=== PATIENT | male | born 2005 | race Caucasian/White ===

== ENCOUNTER 2024-02-28 01:40 | Emergency (ER) | payer OTHER ==
[2024-02-28] MEDS ORDERED: KETOROLAC 30 MG/ML INJ ONE (02:00)
[2024-02-28] MEDS ORDERED: NA CHLORIDE 0.9% 1,000 ML ONE (02:01)
[2024-02-28 02:24] LABS: Absolute Eosinophils 0.2 K/uL (0-0.5); Absolute Lymphocytes (CBC) 3.4 K/uL (0.7-4.9); Absolute Monocytes 0.6 K/uL (0.1-1.3); Absolute Neutrophil 4.5 K/uL (1.8-8.0); Basophils % 0.4 % (0-1.3); Eosinophils % 1.8 % (0-4.4); Hematocrit 44.4 % (39.6-49.0); Hemoglobin 15.6 g/dL (13.6-17.9); Lymphocytes % 38.5 % (15.3-44.8); MCH 32.2 pg (27.0-35.0); MCHC 35.1 g/dL (32.0-36.0); MCV 91.8 fL (80-100); MPV 9.1 fL (7.6-11.3); Monocytes % 7.4 % (3.3-12.3); Neutrophils % 51.9 % (41.7-73.7); Nucleated Red Blood Cells % 0.3 % (0-0); Platelets 212 thou/uL (152-406); RBC Red Blood Cell Count 4.84 M/uL (4.33-5.43); Red Cell Distribution Width 12.5 % (12.1-15.2)
[2024-02-28 02:36] LABS: Albumin 3.8 g/dL (3.4-5.0); Albumin/Globulin Ratio 1.1 (1.1-1.8); Anion Gap 8.7 mEq/L (5.0-15.0); Bilirubin Direct 0.1 mg/dL (0-0.2); Bilirubin Indirect, Calculated 0.6 mg/dL (0.2-0.8); Bilirubin Total 0.7 mg/dL (0.2-1.0); Globulin 3.4 g/dL (2.3-3.5); Magnesium 2.1 mg/dL (1.6-2.4); Potassium 3.7 mEq/L (3.5-5.1); Protein, Total 7.2 g/dL (6.4-8.2); Troponin High Sensitivity 4.8 pg/mL (<58.9)
--- NOTE | 2024-02-28 03:53 | EDPHYS ---
Physician Documentation [facility] Name: Antoni Bach Age: 19 yrs Sex: Male : 2005 Arrival Date: 02/28/2024 Time: 01:40 Bed 14 Private MD: ED Physician Brian Galeana HPI: 02/27 01:54 This 19 yrs old Male presents to ER via Ambulatory with complaints of Chest Pain. cp 01:55 The patient or guardian reports chest pain that is located primarily in the anterior cp chest wall, left. The pain radiates to back. Associated signs and symptoms: Pertinent positives: cough, Pertinent negatives: abdominal pain, diaphoresis, lower extremity pain, lower extremity swelling, palpitations, shortness of breath, syncope, vomiting. The chest pain is described as sharp. Duration: The patient or guardian reports a single episode, that is still ongoing, but improving. Severity of pain: in the emergency department the pain has improved moderately. Historical: - Allergies: 01:51 No Known Allergies; jw7 - Home Meds: 01:51 None [Active]; jw7 - PMHx: 01:51 Heart murmur; Anxiety; jw7 - PSHx: 01:51 None; jw7 - Immunization history:: Adult Immunizations up to date, Client reports having NOT received the Covid vaccine. Flu vaccine is not up to date. - Infectious Disease History:: Denies. - Social history:: Smoking status: Reported history of juuling and/or vaping. Patient uses alcohol, occasionally. Patient/guardian denies using street drugs, IV drugs. ROS: 01:56 Cardiovascular: Positive for chest pain, Negative for edema, palpitations, cp Exam: 01:58 ECG was reviewed by the Attending Physician. cp 02:00 Constitutional: The patient appears in no acute distress, alert, awake, cp non-diaphoretic, non-toxic, well developed, well nourished, anxious, uncomfortable, 02:00 Head/Face: Normocephalic, atraumatic. cp 02:00 Eyes: Periorbital structures: appear normal, Conjunctiva: normal, no exudate, no injection, Sclera: no appreciated abnormality, Lids and lashes: appear normal, bilaterally, 02:00 ENT: External ear(s): are unremarkable, Nose: is normal, Mouth: Lips: moist, Oral mucosa: pink and intact, moist, Posterior pharynx: Airway: no evidence of obstruction, patent, 02:00 Neck: ROM/movement: is normal, is supple, without pain, no range of motions limitations, 02:00 Chest/axilla: Inspection: normal, Palpation: is normal, no crepitus, no tenderness, 02:00 Cardiovascular: Rate: normal, Rhythm: regular, Edema: is not appreciated, JVD: is not appreciated, 02:00 Respiratory: the patient does not display signs of respiratory distress, Respirations: normal, no use of accessory muscles, no retractions, labored breathing, is not present, Breath sounds: are clear throughout, no decreased breath sounds, no stridor, no wheezing, 02:00 Abdomen/GI: Inspection: abdomen appears normal, Palpation: abdomen is soft and non-tender, in all quadrants, 02:00 Back: pain, is absent, ROM is normal, 02:00 Neuro: Orientation: to person, place \T\ time. Mentation: is normal, Motor: moves all fours, strength is normal, Sensation: is normal, Vital Signs: 01:50 BP 155 / 97; Pulse 81; Resp 20; Temp 98.2; Pulse Ox 100% ; Weight 88.45 kg; Height 5 jw7 ft. 7 in. ; Pain 2/10; 03:00 BP 145 / 88; Pulse 79; Resp 19 S; Pulse Ox 99% on R/A; [facility] 04:00 BP 140 / 84; Pulse 71; Resp 18 S; Pulse Ox 100% on R/A; [facility] 01:50 Body Mass Index 30.54 (88.45 kg, 170.18 cm) [facility] 01:50 Pain Scale: Adult 7 MDM: 01:47 Patient medically screened. 02:00 Differential diagnosis: abnormal EKG, acute myocardial infarction, anxiety, chest wall cp pain, costochondritis, gastritis, peptic ulcer disease, pericarditis, pleurisy, pneumonia, pneumothorax, thoracic aortic disection. 03:51 Data reviewed: vital signs, nurses notes, lab test result(s), EKG, radiologic studies, cp plain films. 03:51 I considered the following discharge prescriptions or medication management in the emergency department Medications were administered in the Emergency Department. See MAR. Independent interpretation of the following test(s) in the Emergency Department EKG: See my EKG interpretation above X-Ray: My interpretation is image of chest negative for infiltrates. Counseling: I had a detailed discussion with the patient and/or guardian regarding the historical points, exam findings, and any diagnostic results supporting the discharge/admit diagnosis, lab results, radiology results, to return to the emergency department if symptoms worsen or persist or if there are any questions or concerns that arise at home. Special discussion: Based on the patient's history, exam, and Dx evaluation, there is no indication for emergent intervention or inpatient Tx. It is understood by the patient/guardian that if the Sx's persist or worsen they need to return immediately for re-evaluation. 02/27 01:54 Order name: Basic Metabolic Panel; Complete Time: 02:41 cp 02/27 02:41 Interpretation: Normal except: GLUC 123. cp 02/27 01:54 Order name: CBC with Diff; Complete Time: 02:41 cp 02/27 02:43 Interpretation: Reviewed. cp 02/27 01:54 Order name: D-Dimer; Complete Time: 02:41 cp 02/27 02:43 Interpretation: Reviewed. cp 02/27 01:54 Order name: LFT's; Complete Time: 02:41 cp 02/27 01:54 Order name: Magnesium; Complete Time: 02:41 cp 02/27 01:54 Order name: Troponin HS; Complete Time: 02:41 cp 02/27 02:42 Interpretation: Reviewed. cp 02/27 01:54 Order name: XRAY Chest (1 view) cp 02/27 01:54 Order name: EKG; Complete Time: 01:54 cp 02/27 01:54 Order name: Cardiac monitoring; Complete Time: 01:55 cp 02/27 01:54 Order name: EKG - Nurse/Tech; Complete Time: 01:55 cp 02/27 01:54 Order name: IV Saline Lock; Complete Time: 02:15 cp 02/27 01:54 Order name: Labs collected and sent; Complete Time: 02:14 cp 02/27 01:54 Order name: O2 Per Protocol; Complete Time: 01:55 cp 02/27 01:54 Order name: O2 Sat Monitoring; Complete Time: 01:55 cp EC:58 Rate is 89 beats/min. Rhythm is regular. OK interval is normal. QRS interval is normal. cp QT interval is normal. T waves are Inverted in lead aVR. Interpreted by me. Reviewed by me. Administered Medications: 02:15 Drug: NS 0.9% IV 1000 ml IV at 999 bolus Per protocol; 1000 mL bolus Route: IV; Rate: jw7 999 bolus; Site: right antecubital; 04:00 Follow up: Response: No adverse reaction; IV Status: Completed infusion; IV Intake: jw7 1000ml 02:15 Drug: Ketorolac IVP 15 mg IVP once Route: IVP; Site: right antecubital; jw7 04:00 Follow up: Response: No adverse reaction; Marked relief of symptoms; Pain is decreased jw7 Disposition Summary: 02/28/24 03:52 Discharge Ordered Notes: Location: Home cp Problem: new cp Symptoms: have improved cp Condition: Stable cp Diagnosis - Chest pain, unspecified cp - Anxiety disorder, unspecified cp Followup: cp - With: Private Physician - When: 1 - 2 days - Reason: Recheck today's complaints Discharge Instructions: - Discharge Summary Sheet cp - Nonspecific Chest Pain, Adult cp - Generalized Anxiety Disorder, Adult cp Forms: - Medication Reconciliation Form cp - Antibiotic Education cp - Prescription Opioid Use cp - Patient Portal Instructions cp - Leadership Thank You Letter cp Prescriptions: - Vistaril 25 mg Oral capsule - take 1 capsule ORAL route 2-3 times daily as needed for anxiety; 30 capsule; cp Refills: 0, Product Selection Permitted Signatures: Dispatcher [employer] EDMS Brian Calvillo PA PA cp Natalie Victor RN RN jw7 Corrections: (The following items were deleted from the chart) 01:53 01:51 Home Meds: None; jw7 01:53 01:51 PMHx: None; jw7 jw7 01:55 01:54 BASIC METABOLIC PANEL+C.LAB.BRZ ordered. EDMS EDMS 01:55 01:54 CBC+H.LAB.BRZ ordered. EDMS EDMS :55 01:54 D-DIMER+COAG.LAB.BRZ ordered. EDMS EDMS 01:55 01:54 HEPATIC FUNCTION+C.LAB.BRZ ordered. EDMS EDMS 01:55 01:54 MAGNESIUM+C.LAB.BRZ ordered. EDMS EDMS 01:55 01:54 Troponin High Sensitivity+C.LAB.BRZ ordered. EDMS EDMS
--- NOTE | 2024-02-28 03:53 | ER ---
Nurse's Notes [facility] Name: Antoni Bach Age: 19 yrs Sex: Male : 2005 Arrival Date: 02/28/2024 Time: 01:40 Bed 14 Private MD: Diagnosis: Chest pain, unspecified;Anxiety disorder, unspecified Presentation: 02/27 01:50 Chief complaint: Patient states: Woke up with sever pain in the center of my chest jw7 around 0100 this morning and my back started tingling too. Coronavirus screen: At this time, the client does not indicate any symptoms associated with coronavirus-19. Ebola Screen: No symptoms or risks identified at this time. Initial Sepsis Screen: Does the patient meet any 2 criteria? No. Patient's initial sepsis screen is negative. Does the patient have a suspected source of infection? No. Patient's initial sepsis screen is negative. Risk Assessment: Do you want to hurt yourself or someone else? Patient reports no desire to harm self or others. Onset of symptoms. Onset of symptoms was February 28, 2024 at 01:00. 01:50 Method Of Arrival: Ambulatory jw7 01:50 Acuity: NARINDER 3 jw7 Triage Assessment: 01:51 General: Appears in no apparent distress. uncomfortable, Behavior is calm, cooperative. jw7 Pain: Complains of pain in chest Pain does not radiate. Pain currently is 2 out of 10 on a pain scale. at worst was 8 out of 10 on a pain scale. Quality of pain is described as aching, dull, Pain began suddenly, Is continuous. EENT: No deficits noted. No signs and/or symptoms were reported regarding the EENT system. Neuro: Level of Consciousness is awake, alert, obeys commands, Oriented to person, place, time, situation. Cardiovascular: Heart tones S1 S2 present Capillary refill < 3 seconds Clubbing of nail beds is absent JVD is absent Patient's skin is warm and dry. Respiratory: Airway is patent Trachea midline Respiratory effort is even, unlabored, Respiratory pattern is regular, symmetrical, Breath sounds are clear bilaterally. GI: Abdomen is flat, non-distended, Bowel sounds present X 4 quads. Abd is soft and non tender X 4 quads. : No deficits noted. No signs and/or symptoms were reported regarding the genitourinary system. Derm: Skin is intact, is healthy with good turgor, Skin is dry, Skin is normal, Skin temperature is warm. Musculoskeletal: Circulation, motion, and sensation intact. Range of motion: intact in all extremities. Historical: - Allergies: 01:51 No Known Allergies; jw7 - Home Meds: 01:51 None [Active]; jw7 - PMHx: :51 Heart murmur; Anxiety; jw7 - PSHx: :51 None; jw7 - Immunization history:: Adult Immunizations up to date, Client reports having NOT received the Covid vaccine. Flu vaccine is not up to date. - Infectious Disease History:: Denies. - Social history:: Smoking status: Reported history of juuling and/or vaping. Patient uses alcohol, occasionally. Patient/guardian denies using street drugs, IV drugs. Screenin:00 [facility] ED Fall Risk Assessment (Adult) History of falling in the last 3 months, jw7 including since admission No falls in past 3 months (0 pts) Confusion or Disorientation No (0 pts) Intoxicated or Sedated No (0 pts) Impaired Gait No (0 pts) Mobility Assist Device Used No (0 pt) Altered Elimination No (0 pt) Score/Fall Risk Level 0 - 2 = Low Risk Oriented to surroundings, Maintained a safe environment, Educated pt \T\ family on fall prevention, incl call for assistance when getting out of bed. Abuse screen: Denies threats or abuse. Denies injuries from another. Nutritional screening: No deficits noted. Tuberculosis screening: No symptoms or risk factors identified. Assessment: 01:55 General: See Triage Assessment. jw7 03:00 Reassessment: Patient appears in no apparent distress at this time. No changes from jw7 previously documented assessment. Patient and/or family updated on plan of care and expected duration. Pain level reassessed. Patient is alert, oriented x 3, equal unlabored respirations, skin warm/dry/pink. 04:20 Reassessment: Patient appears in no apparent distress at this time. No changes from jw7 previously documented assessment. Patient and/or family updated on plan of care and expected duration. Pain level reassessed. Patient is alert, oriented x 3, equal unlabored respirations, skin warm/dry/pink. Pain: Denies pain. Vital Signs: 01:50 BP 155 / 97; Pulse 81; Resp 20; Temp 98.2; Pulse Ox 100% ; Weight 88.45 kg; Height 5 jw7 ft. 7 in. ; Pain 2/10; 03:00 BP 145 / 88; Pulse 79; Resp 19 S; Pulse Ox 99% on R/A; jw7 04:00 BP 140 / 84; Pulse 71; Resp 18 S; Pulse Ox 100% on R/A; jw7 01:50 Body Mass Index 30.54 (88.45 kg, 170.18 cm) jw7 01:50 Pain Scale: Adult jw7 ED Course: 01:43 Patient arrived in ED. ra3 01:43 Brian Calvillo PA is PHCP. cp 01:44 Brian Galeana MD is Attending Physician. cp 01:50 Natalie Victor RN is Primary Nurse. jw7 01:51 Triage completed. jw7 01:51 Arm band placed on. jw7 01:58 EKG done, by machine packaging technician. reviewed by Brian MORRISSEY. oe 02:00 Patient has correct armband on for positive identification. Bed in low position. Call jw7 light in reach. Side rails up X 1. Provided Education on: Use of Call Light. Client placed on continuous cardiac and pulse oximetry monitoring. NIBP monitoring applied. cafeteria monitor on. 02:00 O2 via RA. jw7 02:06 Inserted saline lock: 20 gauge in right antecubital area, using aseptic technique. oe Blood collected. 02:14 Troponin HS Sent. oe 02:14 Magnesium Sent. oe 02:14 LFT's Sent. oe 02:14 D-Dimer Sent. oe 02:14 CBC with Diff Sent. oe 02:14 Basic Metabolic Panel Sent. oe 03:53 XRAY Chest (1 view) In Process Unspecified. EDMS 04:20 No provider procedures requiring assistance completed. IV discontinued, intact, jw7 bleeding controlled, No redness/swelling at site. Pressure dressing applied. Administered Medications: 02:15 Drug: NS 0.9% IV 1000 ml IV at 999 bolus Per protocol; 1000 mL bolus Route: IV; Rate: jw7 999 bolus; Site: right antecubital; 04:00 Follow up: Response: No adverse reaction; IV Status: Completed infusion; IV Intake: jw7 1000ml 02:15 Drug: Ketorolac IVP 15 mg IVP once Route: IVP; Site: right antecubital; jw7 04:00 Follow up: Response: No adverse reaction; Marked relief of symptoms; Pain is decreased jw7 Medication: 04:20 VIS not applicable for this client. jw7 Intake: 04:00 IV: 1000ml; Total: 1000ml. jw7 Outcome: 03:52 Discharge ordered by . cp 04:20 Discharged to home ambulatory, jw7 04:20 Condition: stable 04:20 Discharge instructions given to patient, Instructed on discharge instructions, follow up and referral plans. medication usage, Demonstrated understanding of instructions, follow-up care, medications, Prescriptions given X 1, 04:20 Patient left the ED. jw7 Signatures: Dispatcher [employer] EDMS Brian Calvillo PA PA cp Espinosa, Orlando oe Waits, Jodi, RN RN jwLian Calhoun ra3 Corrections: (The following items were deleted from the chart) 01:53 01:51 Home Meds: None; jw7 jw7 01:53 01:51 PMHx: None; jw7 jw7 04:56 04:55 Patient left the ED. jw7 jw7
[2024-02-28 05:28] VITALS: BP 140/84; TEMP 98.2; O2SAT 100
--- NOTE | 2024-02-28 13:49 | RAD REPORT ---
EXAM DESCRIPTION: RAD - Chest Single View - 02/28/2024 3:51 am CLINICAL HISTORY: CHEST PAIN COMPARISON: None TECHNIQUE: Single AP view of the chest. FINDINGS: Lung volumes adequate. Cardiac silhouette is normal in size. No pneumothorax. No large pleural effusion. No focal consolidation. No acute bony finding. IMPRESSION: No evidence of acute cardiopulmonary disease. Electronically signed by: Aleyda Dejesus MD 02/28/2024 04:42 AM CDT Due to temporary technical issues with the PACS/Fluency reporting system, reports are being signed by the in house radiologists without review as a courtesy to insure prompt reporting. The interpreting radiologist is fully responsible for the content of the report.
--- NOTE | 2024-02-29 16:47 | EKG ---
Test Date: 2024-02-28 Test Time: 01:50:38 Absorption Plant Operator Helper: MARLA MEASUREMENT RESULTS: Intervals: Rate: 89 OK: 140 QRSD: 98 QT: 352 QTc: 428 [place]: P: 33 OK: 140 QRS: 76 T: 15 INTERPRETIVE STATEMENTS: Normal sinus rhythm Normal ECG No previous ECG available for comparison Electronically Signed On 02-29-24 16:42:25 CDT by Maicol Anguiano
== END 2024-02-28 04:55 | disposition home or self-care (01) ==
LOC: ER 01:40
DX: R07.9 Chest pain, unspecified (principal); F41.9 Anxiety disorder, unspecified; Z28.310 Unvaccinated for COVID-19
CPT/HCPCS: 93005; 85025; 80048; 36415; 83735; 85379; 80076; 84484; 71045; J7030; 96361; 96374; 99285